=== PATIENT | female | born 1995 | race Two or more races ===

== ENCOUNTER 2022-05-29 14:49 | Emergency (ER) | payer OTHER ==
[~2022-05-29] VITALS: Ht 165.1 cm; Wt 80.6 kg
[2022-05-29 16:18] LABS: BASO % 0.5 % (0.0-1.0); EOS # 0.1 10^3/uL (0.0-0.5); EOS % 0.9 % (0.0-3.0); HEMATOCRIT 39.5 % (36.0-47.0); HEMOGLOBIN 12.6 g/dl (12.0-15.5); LYMPH # 2.4 10^3/uL (1.5-5.0); LYMPH % 30.8 % (24.0-44.0); MEAN CORPUSCULAR HEMOGLOBIN 25.8 pg (27.0-33.0); MEAN CORPUSCULAR HGB CONC 31.9 g/dl (32.0-36.5); MEAN CORPUSCULAR VOLUME 80.8 fl (80.0-96.0); MONO # 0.5 10^3/uL (0.0-0.8); MONO % 6.7 % (2.0-8.0); NEUTROPHILS # 4.8 10^3/uL (1.5-8.5); NEUTROPHILS % 60.7 % (36.0-66.0); PLATELET COUNT, AUTOMATED 291 10^3/uL (150-450); RED BLOOD COUNT 4.89 10^6/uL (4.00-5.40); WHITE BLOOD COUNT 7.9 10^3/uL (4.0-10.0)
[2022-05-29 16:44] LABS: HCG, SERUM QUALITATIVE NEGATIVE (NEGATIVE)
[2022-05-29 16:51] LABS: ALBUMIN 3.7 GM/DL (3.2-5.2); ALT/SGPT 20 U/L (12-78); BILIRUBIN,DIRECT 0.2 MG/DL (0.0-0.2); BILIRUBIN,TOTAL 0.9 MG/DL (0.2-1.0); BLOOD UREA NITROGEN 7 MG/DL (7-18); CALCIUM LEVEL 9.5 MG/DL (8.5-10.1); CARBON DIOXIDE LEVEL 27 MEQ/L (21-32); CHLORIDE LEVEL 109 MEQ/L (98-107); CREATININE FOR GFR 0.78 MG/DL (0.55-1.30); GLOMERULAR FILTRATION RATE > 60.0 (>60); GLUCOSE, FASTING 103 MG/DL (70-100); LIPASE 93 U/L (73-393); POTASSIUM SERUM 3.9 MEQ/L (3.5-5.1); SODIUM LEVEL 139 MEQ/L (136-145); TOTAL PROTEIN 7.3 GM/DL (6.4-8.2)
[2022-05-29 20:01] LABS: BACTERIA, URINE SMALL AMOUNT; HYALINE CAST, URINE NONE SEEN /lpf (0-1); RBC, URINE NONE SEEN /hpf (0-3); SQUAMOUS EPITHELIAL CELL URINE SMALL AMOUNT /hpf (SMALL AMT)
[2022-05-29 21:41] VITALS: BP 121/68
== END 2022-05-29 21:44 | disposition home or self-care (01) ==
LOC: M ED 14:49
DX: R10.2 Pelvic and perineal pain (principal); Z98.890 Other specified postprocedural states; R11.0 Nausea; R42 Dizziness and giddiness; M54.9 Dorsalgia, unspecified

== ENCOUNTER 2023-09-01 12:55 | Outpatient (CLI) | payer OTHER ==
[~2023-09-01] VITALS: Ht 165.1 cm; Wt 93.8 kg
[2023-09-01] MEDS ORDERED: PRENTAB9 PO (13:22)
[2023-09-01] MEDS ORDERED: ASPI81CH33 PO (13:23)
[2023-09-01 13:25] VITALS: BP 121/71
[2023-09-01] MEDS ORDERED: HOME MED LIST COMPLETE! XX SCH (13:30)
[2023-09-01 13:49] VITALS: BP 118/66
[2023-09-01] MEDS ORDERED: ACETAMINOPHEN 500 MG TAB PO ONE (14:00)
[2023-09-01] MEDS ORDERED: PROCHLORPERAZINE 5MG TAB PO ONE (14:45)
[2023-09-01] MEDS ORDERED: diphenhydrAMINE 25MG CAP PO ONE (14:45)
[2023-09-01 15:29] LABS: APPEARANCE, URINE CLEAR (CLEAR); BACTERIA, URINE AUTO NEGATIVE (NEGATIVE); BILIRUBIN, URINE AUTO NEGATIVE (NEGATIVE); BLOOD, URINE BLOOD 1+ (NEGATIVE); COLOR, URINE STRAW (YELLOW); GLUCOSE, URINE (UA) AUTO NEGATIVE (NEGATIVE); KETONE, URINE AUTO NEGATIVE (NEGATIVE); LEUKOCYTE ESTERASE, URINE AUTO 1+ (NEGATIVE); NITRITE, URINE AUTO NEGATIVE (NEGATIVE); PROTEIN, URINE AUTO NEGATIVE (NEGATIVE); RBC, URINE AUTO 1 /HPF (0-3); SPECIFIC GRAVITY URINE AUTO 1.008 (1.002-1.035); SQUAMOUS EPITHELIAL CELL UR AU 0 /HPF (0-6); UROBILINOGEN, URINE AUTO 0.2 mg/dL (0.0-2.0); WBC, URINE AUTO 0 /HPF (0-3)
== END 2023-09-01 15:10 ==
LOC: M LDO 12:55
PROVIDERS: ATTEND Obstetrics & Gynecology
DX: O26.893 Other specified pregnancy related conditions, third trimester (principal); R51.9 Headache, unspecified; Z3A.30 30 weeks gestation of pregnancy; Z79.82 Long term (current) use of aspirin
CPT/HCPCS: 59025; 76815; 81001; G0463

== ENCOUNTER 2023-10-22 01:57 | Outpatient (CLI) | payer OTHER ==
[~2023-10-22] VITALS: Ht 165.1 cm; Wt 94.8 kg
[~2023-10-22 01:57] MED LIST: ASPI81CH33 PO; PRENTAB9 PO
[2023-10-22 02:19] VITALS: BP 112/71
[2023-10-22] MEDS ORDERED: HOME MED LIST COMPLETE! XX SCH (02:50)
[2023-10-22 03:46] VITALS: BP 105/60
== END 2023-10-22 04:41 | disposition home or self-care (01) ==
LOC: M LDO 01:57
PROVIDERS: ATTEND Obstetrics & Gynecology
DX: O47.1 False labor at or after 37 completed weeks of gestation (principal); Z3A.37 37 weeks gestation of pregnancy; O24.414 Gestational diabetes mellitus in pregnancy, insulin controlled; Z79.82 Long term (current) use of aspirin
CPT/HCPCS: 59025; 76815; G0463

== ENCOUNTER 2023-11-02 10:10 | Inpatient (IN) | payer OTHER ==
[2023-11-02] VITALS (8 sets, daily range): BP systolic 112–132; BP diastolic 56–75
[~2023-11-02] VITALS: Ht 165.1 cm; Wt 93.1 kg
[2023-11-02] MEDS ORDERED: ECOT81TA5 PO (10:36)
[2023-11-02] MEDS ORDERED: INSU100V19 SC (11:35)
[2023-11-02] MEDS ORDERED: HOME MED LIST COMPLETE! XX SCH (11:35)
[2023-11-02] MEDS ORDERED: INSUN SC (11:35)
[2023-11-02 11:37] LABS: HEMATOCRIT 31.3 % (36.0-47.0); HEMOGLOBIN 9.8 g/dl (12.0-15.5); MEAN CORPUSCULAR HEMOGLOBIN 23.4 pg (27.0-33.0); MEAN CORPUSCULAR HGB CONC 31.3 g/dl (32.0-36.5); MEAN CORPUSCULAR VOLUME 74.9 fl (80.0-96.0); PLATELET COUNT, AUTOMATED 262 10^3/uL (150-450); RED BLOOD COUNT 4.18 10^6/uL (4.00-5.40)
[2023-11-02] MEDS ORDERED: OXYTOCIN DRIP 30 UNITS in IV 1 EA IV PRN ×4 (12:10)
[2023-11-02] MEDS ORDERED: METHYLERGONOVINE MALEATE 0.2MG/ML 1ML VIAL IM PRN (12:10)
[2023-11-02] MEDS ORDERED: TRANEXAMIC ACID INJection 1,000 MG in NS 100 ML IV PRN (12:10)
[2023-11-02] MEDS ORDERED: LIDOCAINE 1% MDV 20ML VIAL INFIL PRN (12:10)
[2023-11-02] MEDS ORDERED: CARBOPROST TROMETHAMINE 250 MCG/ML AMP IM PRN (12:10)
[2023-11-02] MEDS ORDERED: INSULIN IV RATE CHANGE DOCUMENTATION ML/HR XX SCH (12:15)
[2023-11-02] MEDS ORDERED: LR 1,000 ML IV SCH (12:30)
[2023-11-02] MEDS: miSOPROStol 50MCG 1/2 TABLET PO SCH ×2 (12:48→23:33)
[2023-11-02] MEDS: INSULIN REGULAR IN 0.9 % NACL 100 UNIT in IV 1 EA IV SCH ×4 (15:51→19:53)
[2023-11-02] MEDS: NS 1,000 ML IV SCH (15:51)
[2023-11-03] VITALS (16 sets, daily range): BP systolic 105–161; BP diastolic 59–89; O2SAT 95–98
[2023-11-03] MEDS ORDERED: OXYTOCIN DRIP 30 UNITS in IV 1 EA IV SCH ×5 (03:40→10:40)
[2023-11-03] MEDS: NS 1,000 ML IV SCH ×2 (04:30→07:25)
[2023-11-03] MEDS: PRENATAL VITAMINS CHEWABLE TABLET PO SCH (09:00)
[2023-11-03] MEDS ORDERED: METHYLERGONOVINE MALEATE 0.2 MG TAB PO PRN (10:40)
[2023-11-03] MEDS ORDERED: IBUPROFEN 800 MG TAB PO PRN (10:40)
[2023-11-03] MEDS ORDERED: IBUPROFEN 600MG TAB PO PRN (10:40)
[2023-11-03] MEDS ORDERED: METOCLOPRAMIDE INJ 10MG/2ML VIAL IV PRN (10:40)
[2023-11-03] MEDS ORDERED: MOM 30ML SUSPENSION UDC PO PRN (10:40)
[2023-11-03] MEDS ORDERED: ACETAMINOPHEN TAB 650MG DOSE (2X325MG) PO PRN (10:40)
[2023-11-03] MEDS ORDERED: LR 1,000 ML IV SCH (10:40)
[2023-11-03] MEDS ORDERED: DOCUSATE SODIUM 100MG CAPSULE PO PRN (10:40)
[2023-11-03] MEDS ORDERED: DIBUCAINE 1% OINTMENT 30GM TOP PRN (10:40)
[2023-11-03] MEDS ORDERED: RHOGAM 300MCG (1500IU) INJ IM SCH (10:40)
[2023-11-03] MEDS: ACETAMINOPHEN 500 MG TAB PO PRN ×2 (11:48→21:28)
[2023-11-04 05:47] VITALS: BP 114/62
[2023-11-04] MEDS: PRENATAL VITAMINS CHEWABLE TABLET PO SCH (07:37)
[2023-11-05] MEDS ORDERED: MEASLES,MUMPS,RUBELLA VACCINE INJ (MMR-II) SC.IMMUN ONE (09:00)
== END 2023-11-04 13:42 | disposition home or self-care (01) | DRG 807 ==
LOC: M LDI 10:10 → M OBS 11-03 12:45
PROVIDERS: ADMIT Obstetrics & Gynecology; ATTEND Obstetrics & Gynecology
PROC: 3E0P7GC Introduction of Other Therapeutic Substance into Female Reproductive, Via Natural or Artificial Opening (ICD-10-PCS; 2023-11-02)
PROC: 10E0XZZ Delivery of Products of Conception, External Approach (ICD-10-PCS; principal; 2023-11-03)
PROC: 10907ZC Drainage of Amniotic Fluid, Therapeutic from Products of Conception, Via Natural or Artificial Opening (ICD-10-PCS; 2023-11-03)
DX: O24.424 Gestational diabetes mellitus in childbirth, insulin controlled (principal); Z37.0 Single live birth; Z3A.39 39 weeks gestation of pregnancy; Z79.4 Long term (current) use of insulin; Z79.82 Long term (current) use of aspirin; O69.2XX0 Labor and delivery complicated by other cord entanglement, with compression, not applicable or unspecified; O69.81X0 Labor and delivery complicated by cord around neck, without compression, not applicable or unspecified